=== PATIENT | male | born 1975 | race Native Hawaiian/Other Pacific Islander ===

== ENCOUNTER 2018-05-25 20:07 | Emergency (ER) | payer SELFPAY ==
[2018-05-25 20:48] VITALS: BP 127/79
[2018-05-25] MEDS ORDERED: TETRACAINE 0.5% OU ONE (23:34)
[2018-05-25] MEDS ORDERED: FUL-GLO OP ONE ×2 (23:34→23:38)
[2018-05-25] MEDS ORDERED: BSS OU ONE (23:38)
--- NOTE | 2018-05-26 00:20 | Emergency Department Report ---
Eye Injury/Foreign Body - HPI Duration: 1 Day Eye Location: Left Severity: Moderate Tetanus Status: Up to Date Eye Symptoms: Eye Pain: Yes, Blurred Vision: No, Eye Redness: Yes, Grinding/ Hammering Metal: Yes, Used Eye Protection: No, Contact Lens Use: No, Recalls Injury: Yes, Photophobia: No Other History: Was working with metal and felt a piece hit his eye about 2 days ago reports continued eye irritation and discomfort. Nose without to be a foreign body was connected to the ER for evaluation and treatment recommendations. ED Review of Systems ROS: Stated complaint: PIECE OF WOOD IN EYE Other details as noted in HPI Constitutional: denies: chills, fever Eyes: eye pain. denies: eye discharge, vision change ENT: denies: ear pain, throat pain Respiratory: denies: cough, shortness of breath, wheezing Cardiovascular: denies: chest pain, palpitations Endocrine: no symptoms reported Gastrointestinal: denies: abdominal pain, nausea, diarrhea Genitourinary: denies: urgency, dysuria Musculoskeletal: denies: back pain, joint swelling, arthralgia Skin: denies: rash, lesions Neurological: denies: headache, weakness, paresthesias Psychiatric: denies: anxiety, depression Hematological/Lymphatic: denies: easy bleeding, easy bruising ED Past Medical Hx - Past Medical History Previous Medical History?: Yes Hx Hypertension: Yes - Surgical History Past Surgical History?: No - Social History Smoking Status: Never Smoker Substance Use Type: None - Medications Home Medications: Home Medications Medication Instructions Recorded Confirmed Last Taken Type Ketorolac Tromethamine [Acular] 5 ml OP Q6H PRN #1 bottle 05/26/18 Unknown Rx Tobramycin 0.3% [Tobrex] 1 drop OS Q8HR #1 bottle 05/26/18 Unknown Rx Eye Injury Exam - Exam General: Vital signs noted. No distress. Alert and acting appropriately. Negative. Funduscopic examination. There is increased. Uptake to the left. I around the edge of the iris at about 3:00 and 10:00 symbolizing an abrasion. There is also a rust ring to the right cornea with a black metal remnant was removed during the irrigation process. There is no foreign bodies are trauma or trauma to the eyelids reveal one inverted - Visual Acuity Left Vision Acuity Degree: 20/30 Eye Exam: Left Injection, Left Eye Foreign Body, Left Fluorescein Uptake, Right Lid Foreign Body, Right Mucous Discharge, Right Purulent Discharge, Right Corneal Edema, Right Photophobia ED Course Vital Signs 05/25/18 20:40 Temperature 97.6 F Pulse Rate 66 Respiratory 18 Rate Blood Pressure 127/79 O2 Sat by Pulse 98 Oximetry Critical care attestation.: If time is entered above; I have spent that time in minutes in the direct care of this critically ill patient, excluding procedure time. ED Disposition Clinical Impression: Corneal abrasion, Corneal rust ring of left eye Disposition: DC-01 TO HOME OR SELFCARE Is pt being admited?: No Does the pt Need Aspirin: No Condition: Stable Instructions: Corneal Abrasion (ED), Eye Foreign Body (ED) Prescriptions: Ketorolac Tromethamine [Acular] 5 ml OP Q6H PRN #1 bottle PRN Reason: eye pain Tobramycin 0.3% [Tobrex] 1 drop OS Q8HR #1 bottle Referrals: PRIMARY CAREMD [Primary Care Provider] - 3-5 Days MYLES BRITO MD [Staff Physician] - 24 Hours ELLI POTTS MD [Staff Physician] - 24 Hours RADHA MCINTYRE MD [Staff Physician] - 24 Hours
== END 2018-05-26 00:36 | disposition home or self-care (01) ==
LOC: ED 20:07
DX: T15.02XA Foreign body in cornea, left eye, initial encounter (principal); I10 Essential (primary) hypertension; W31.1XXA Contact with metalworking machines, initial encounter; Y93.89 Activity, other specified; Y99.0 Civilian activity done for income or pay; Y92.69 Other specified industrial and construction area as the place of occurrence of the external cause
CPT/HCPCS: 99283